=== PATIENT | female | born 1950 | race Caucasian/White ===

== ENCOUNTER 2017-01-24 12:05 | Emergency (ER) | payer MEDICARE, OTHER ==
[~2017-01-24 12:05] MED LIST: AMARYL4 MG PO; BENAZEPRIL HCL20 MG PO; COUMADIN5 M1 PO; COUMADIN5 MG PO; COUMADIN7.5 MG PO; EPA-DHA SOFTGEL1 CAP PO; GLIMEPIRIDE; GLIMEPIRIDE2 MG PO; GLUCOPHAGE500 MG PO; LANTUS100 U/ML SC; LISINOPRIL-HCTZ PO; LOTENSIN20 MG PO; LOVENOX150 MG/ML SQ; METFORMIN; [UNRECOGNIZED DRUG - REMARK]
[2017-01-24] MEDS ORDERED: ZESTRIL40 M2 PO (12:18)
[2017-01-24] MEDS ORDERED: NOVOLOG FL100 UNIT/2 SC (12:19)
[2017-01-24] MEDS ORDERED: TRESIBA FL200 UNIT/1 SC (12:19)
[2017-01-24] MEDS ORDERED: COUMADIN5 M2 PO ×3 (12:19→13:41)
[2017-01-24] MEDS ORDERED: LIPITOR40 M1 PO (13:11)
[2017-01-24 13:44] LABS: INR 4.7 INR (0.9-1.1); PROTHROMBIN TIME 57.1 SECONDS (9.0-13.6)
[2017-01-24] MEDS ORDERED: NORCO 5-325 TA1 EACH PO (15:00)
[2017-01-24] MEDS ORDERED: PREDNISONE10 M1 PO (15:00)
== END 2017-01-24 15:42 ==
LOC: EDMED 12:05
PROVIDERS: Emergency Medicine
DX: M54.41 Lumbago with sciatica, right side (principal); E11.9 Type 2 diabetes mellitus without complications; E66.9 Obesity, unspecified; I10 Essential (primary) hypertension; E78.5 Hyperlipidemia, unspecified; M79.661 Pain in right lower leg; Z86.711 Personal history of pulmonary embolism; Z79.01 Long term (current) use of anticoagulants; Z79.4 Long term (current) use of insulin; Z79.899 Other long term (current) drug therapy